=== PATIENT | female | born 1955 | race Caucasian/White ===

== ENCOUNTER 2017-07-05 14:15 | Outpatient (CLI) | payer OTHER | END 2017-07-05 14:38 | disposition home or self-care (01) | LOC: MAMO-SONO 14:15 | DX: Z12.31 Encounter for screening mammogram for malignant neoplasm of breast (principal); N60.11 Diffuse cystic mastopathy of right breast; N60.12 Diffuse cystic mastopathy of left breast ==

== ENCOUNTER 2018-07-11 12:47 | Outpatient (CLI) | payer OTHER | END 2018-07-11 12:59 | disposition home or self-care (01) | LOC: MRI 12:47 | DX: M51.16 Intervertebral disc disorders with radiculopathy, lumbar region (principal) | CPT/HCPCS: 72148 ==

== ENCOUNTER 2018-07-11 14:00 | Outpatient (CLI) | payer OTHER | END 2018-07-11 14:03 | disposition home or self-care (01) | LOC: MAMO-SONO 14:00 | DX: Z12.31 Encounter for screening mammogram for malignant neoplasm of breast (principal); Z87.898 Personal history of other specified conditions; N60.11 Diffuse cystic mastopathy of right breast; N60.12 Diffuse cystic mastopathy of left breast ==

== ENCOUNTER 2020-01-31 13:46 | Outpatient (CLI) | payer OTHER | END 2020-01-31 13:59 | disposition home or self-care (01) | LOC: MAMO-SONO 13:46 | PROVIDERS: ATTEND Family Medicine | DX: Z12.31 Encounter for screening mammogram for malignant neoplasm of breast (principal) ==

== ENCOUNTER 2020-03-03 07:36 | Outpatient (CLI) | payer OTHER | END 2020-03-03 07:37 | disposition home or self-care (01) | LOC: SONOGRAMA 07:36 → MAMO-SONO 03-06 15:15 | PROVIDERS: ATTEND Family Medicine | DX: N64.59 Other signs and symptoms in breast (principal) ==

== ENCOUNTER 2021-07-13 08:09 | Outpatient (CLI) | payer OTHER | END 2021-07-13 08:23 | disposition home or self-care (01) | LOC: MAMO-SONO 08:09 | DX: N60.19 Diffuse cystic mastopathy of unspecified breast (principal) ==

== ENCOUNTER → 2021-08-31 | Outpatient (CLI) | payer OTHER | END | disposition home or self-care (01) | LOC: RAD 16:26 | PROVIDERS: ATTEND Internal Medicine | DX: M54.50 Low back pain, unspecified (principal) ==

== ENCOUNTER 2021-09-14 10:13 | Outpatient (CLI) | payer OTHER | END 2021-09-14 10:14 | disposition home or self-care (01) | LOC: NUCLEAR 10:13 | PROVIDERS: ATTEND Internal Medicine | DX: Z13.820 Encounter for screening for osteoporosis (principal); M81.0 Age-related osteoporosis without current pathological fracture ==

== ENCOUNTER 2022-10-13 10:59 | Outpatient (CLI) | payer OTHER | END 2022-10-13 11:15 | disposition home or self-care (01) | LOC: MAMO-SONO 10:59 | PROVIDERS: ATTEND Family Medicine | DX: N60.11 Diffuse cystic mastopathy of right breast (principal); N60.12 Diffuse cystic mastopathy of left breast; Z12.31 Encounter for screening mammogram for malignant neoplasm of breast ==

== ENCOUNTER 2024-07-03 13:45 | Outpatient (CLI) | payer OTHER | END 2024-07-03 13:47 | disposition home or self-care (01) | LOC: MAMO-SONO 13:45 | PROVIDERS: ATTEND Family Medicine | DX: N60.19 Diffuse cystic mastopathy of unspecified breast (principal); Z12.31 Encounter for screening mammogram for malignant neoplasm of breast ==

== ENCOUNTER 2025-01-01 07:41 | Outpatient (CLI) | payer OTHER | END 2025-01-01 07:42 | disposition home or self-care (01) | LOC: SONOGRAMA 07:41 | PROVIDERS: ATTEND Internal Medicine Gastroenterology | DX: R10.9 Unspecified abdominal pain (principal) ==